=== PATIENT | male | born 1995 | race Two or more races ===

== ENCOUNTER 2024-11-27 11:58 | Emergency (ER) | payer OTHER ==
[~2024-11-27] VITALS: Ht 172.7 cm; Wt 73.0 kg
[2024-11-27 12:00] VITALS: O2SAT 98
[2024-11-27 12:11] VITALS: TEMP 37.1
[2024-11-27] MEDS: IBUPROFEN 600MG TABLET PO ONE (12:40)
[2024-11-27 15:21] VITALS: BP 149/89; PULSE 84; RESP 18; O2SAT 100
== END 2024-11-27 15:22 | disposition home or self-care (01) ==
LOC: ER 11:58
DX: M25.562 Pain in left knee (principal); M25.572 Pain in left ankle and joints of left foot; M25.511 Pain in right shoulder; M54.2 Cervicalgia; W19.XXXA Unspecified fall, initial encounter; Y93.89 Activity, other specified; Y92.89 Other specified places as the place of occurrence of the external cause; Y99.8 Other external cause status
CPT/HCPCS: 99284; 29515; 72128; 73030; 73562; 73610; 73630; A6449